=== PATIENT | female | born 1975 | race Hispanic/Latino ===

== ENCOUNTER 2020-03-07 10:23 | Emergency (ER) | payer BC ==
[2020-03-07 11:15] LABS: BASOPHILS % (AUTO) 1.3 % (0.0-5.0); EOSINOPHILS % (AUTO) 1.5 % (0.0-8.0); HEMATOCRIT 42.8 % (36-48); LYMPHOCYTES % (AUTO) 34.6 % (21.0-51.0); MEAN CORPUSCULAR HEMOGLOBIN 31.3 pg (27.0-33.0); MEAN CORPUSCULAR HGB CONC 34.1 g/dL (32.0-36.0); MEAN CORPUSCULAR VOLUME 91.6 fL (79-99); MONOCYTES % (AUTO) 8.1 % (3.0-13.0); NEUTROPHILS % (AUTO) 54.2 % (40.0-77.0); PLATELET COUNT (AUTO) 312 K/uL (130-400); RED BLOOD CELL COUNT(AUTO) 4.67 MIL/uL (4.00-5.50); RED CELL DISTRIBUTION WIDTH 11.9 % (11.0-15.5)
[2020-03-07 11:25] LABS: APPEARANCE,URINE CLEAR (CLEAR); BILIRUBIN,URINE NEGATIVE (NEGATIVE); COLOR,URINE YELLOW (YELLOW); GLUCOSE, URINE (UA) NEGATIVE (NEGATIVE); KETONES,URINE 5 mg/dL (NEGATIVE); LEUKOCYTE ESTERASE ,URINE NEGATIVE (NEGATIVE); NITRATE,URINE NEGATIVE (NEGATIVE); OCCULT BLOOD,URINE LARGE (NEGATIVE); PH,URINE 5.5 (5.0-8.0); PROTEIN,URINE NEGATIVE (NEGATIVE); UROBILINOGEN,URINE 0.2 mg/dL (0.2-1.0)
[2020-03-07 11:27] LABS: HCG,QUAL RESULT NEGATIVE (NEGATIVE); POTASSIUM 3.7 mmol/L (3.5-5.1)
[2020-03-07] MEDS ORDERED: ONDANSETRON HCL 4 MG/2 ML VIAL ONE (11:41)
[2020-03-07] MEDS ORDERED: KETOROLAC TROMETHAMINE 30MG/ML ONE (11:41)
[2020-03-07 12:05] LABS: BACTERIA,URINE Rare /HPF (None Seen); SQUAMOUS EPITHELIAL CELL,UR Rare /HPF (0-2)
[2020-03-07] MEDS ORDERED: INSULIN HUMULIN R 100 UNIT/ML 3ML ONE (17:38)
[2020-03-07] MEDS ORDERED: DOXYCYCLINE HYCLATE 100 MG TABLET PO ONE (17:39)
[2020-03-07] MEDS ORDERED: CEFTRIAXONE SODIUM 1 GM ONE (17:40)
== END 2020-03-07 13:07 | disposition home or self-care (01) ==
LOC: EDH 10:23 → EEVIPCON 10:23 → EDH 13:07
DX: N23 Unspecified renal colic (principal)
CPT/HCPCS: 36415; 76770; 80048; 81001; 81025; 85025; 87088; 96374; 96375; 99284; J0696; J1815; J1885; J2405